=== PATIENT | female | born 1990 | race Caucasian/White ===

== ENCOUNTER 2016-07-22 08:10 | Emergency (ER) | payer OTHER ==
[2016-07-22 08:28] VITALS: BP 135/100; PULSE 92; RESP 18; TEMP 98.5; O2SAT 96
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
== END 2016-07-22 09:40 | disposition home or self-care (01) ==
LOC: CED 08:10
DX: G44.209 Tension-type headache, unspecified, not intractable (principal); J06.9 Acute upper respiratory infection, unspecified; E66.9 Obesity, unspecified; Z88.0 Allergy status to penicillin
CPT/HCPCS: 99204-PO; G0463-PO